=== PATIENT | male | born 1980 | race Caucasian/White ===

== ENCOUNTER 2019-02-07 16:06 | Emergency (ER) | payer SELFPAY ==
[~2019-02-07] VITALS: Ht 175.3 cm; Wt 68.0 kg
[2019-02-07] MEDS ORDERED: TAMSULOSIN 0.4 MG CAP.ER.24H. PO STA (17:08)
[2019-02-07] MEDS ORDERED: KETOROLAC 30 MG/ML VIAL. IV ONE (17:15)
[2019-02-07] MEDS ORDERED: MORPHINE SULFATE 10 MG/ML VIAL. IV ONE (17:15)
[2019-02-07] MEDS ORDERED: IV NORMAL SALINE 1000ML BAG 1,000 ML IV ONE (17:15)
[2019-02-07] MEDS ORDERED: ONDANSETRON PF 4 MG/2 ML VIAL. IV ONE (17:15)
[2019-02-07 17:43] LABS: BASO # 0.1 x10^3/uL (0.0-0.2); BASO % 1 % (0-3); EOS # 0.2 x10^3/uL (0.0-0.7); EOS % 2 % (0-3); HEMATOCRIT 44.9 % (39.0-53.0); HEMOGLOBIN 15.2 g/dL (13.0-17.5); LYMPH # 2.7 x10^3/uL (1.0-4.8); LYMPH % 29 % (24-48); MEAN CORPUSCULAR HEMOGLOBIN 31 pg (25-35); MEAN CORPUSCULAR HGB CONC 34 g/dL (31-37); MEAN CORPUSCULAR VOLUME 92 fL (79-100); MONO # 0.8 x10^3/uL (0.0-1.1); MONO % 9 % (0-9); NEUT # 5.5 x10^3/uL (1.8-7.7); NEUT % 59 % (31-73); PLATELET COUNT 218 x10^3/uL (140-400); RED BLOOD COUNT 4.91 x10^6/uL (4.30-5.70); RED CELL DISTRIBUTION WIDTH 15.1 % (11.5-14.5); WHITE BLOOD COUNT 9.2 x10^3/uL (4.0-11.0)
[2019-02-07 17:46] LABS: BILIRUBIN,URINE NEGATIVE (NEG); CLARITY,URINE CLEAR; COLOR,URINE YELLOW; NITRITE,URINE NEGATIVE (NEG); PH,URINE 5.5; PROTEIN,URINE NEGATIVE (NEG-TRACE); UROBILINOGEN,URINE 0.2 mg/dL (0.2 mg/dL)
[2019-02-07 17:52] LABS: CALCIUM 8.7 mg/dL (8.5-10.1); CREATININE 1.2 mg/dL (0.7-1.3); GFR 68.1; POTASSIUM 3.9 mmol/L (3.5-5.1)
[2019-02-07 17:55] LABS: BARBITURATES NEG (NEG); BENZODIAZEPINES NEG (NEG); CANNABINOIDS POS (NEG); COCAINE NEG (NEG); METHADONE NEG (NEG); OPIATES NEG (NEG); PHENCYCLIDINE NEG (NEG)
[2019-02-07 17:55] LABS: ALBUMIN 3.8 g/dL (3.4-5.0); ALBUMIN/GLOBULIN RATIO 1.1 (1.0-1.7); TOTAL BILIRUBIN 0.5 mg/dL (0.2-1.0); TOTAL PROTEIN 7.4 g/dL (6.4-8.2)
[2019-02-07 17:56] LABS: AMPHETAMINE/METHAMPHETAMINE POS (NEG)
[2019-02-07 17:57] LABS: BACTERIA,URINE 0 /HPF (0-FEW); RBC,URINE 0 /HPF (0-2); SQUAMOUS EPITHELIAL CELL,UR OCC /LPF; WBC,URINE OCC /HPF (0-4)
--- NOTE | 2019-02-07 17:57 | PHYS DOC ---
Past Medical History Past Medical History: Kidney Stone (KURT CHANG APRN) Past Surgical History: Other Additional Past Surgical Histo: EYE (KURT CHANG APRN) Additional Information: 0.5 PPD Alcohol Use: None Drug Use: Marijuana, Methamphetamine, Other Social History Narrative: SMOKES MARIJUANA JPTA,METH LAST USED 3 DAYS AGO (KURT CHANG APRN) Adult General Chief Complaint Chief Complaint: FLANK PAIN HPI HPI Patient is a 38 year old male with history of kidney stones who presents to the ED today complaining of 10 out of 10 left flank pain radiating to the left lower back that began 3 days ago. Patient denies any known injury. Describes the pain as sharp and intermittent. Denies any urgency, frequency, dysuria, hematuria. Denies anything relieving the pain but states bending over exacerbates the pain. Denies any pain radiating to bilateral lower extremities. Denies any loss of bowel/ bladder function. (KURT CHANG APRN) Review of Systems Review of Systems Constitutional: Denies fever or chills [] Eyes: Denies change in visual acuity, redness, or eye pain [] HENT: Denies nasal congestion or sore throat [] Respiratory: Denies cough or shortness of breath [] Cardiovascular: No additional information not addressed in HPI [] GI: Denies abdominal pain, nausea, vomiting, bloody stools or diarrhea [] : Reports left flank pain. Denies dysuria or hematuria [] Musculoskeletal: Reports low back pain. Integument: Denies rash or skin lesions [] Neurologic: Denies headache, focal weakness or sensory changes [] All other systems were reviewed and found to be within normal limits, except as documented in this note. (KURT CHANG APRN) Current Medications Current Medications Current Medications Medications (Trade) Dose Ordered Sig/Ovi Start Time Stop Time Status Last Admin Dose Admin Ketorolac Tromethamine (Toradol 30mg Vial) 30 mg 1X ONCE 02/07/19 17:15 02/07/19 17:16 DC 02/07/19 17:38 30 MG Morphine Sulfate (Morphine Sulfate) 5 mg 1X ONCE 02/07/19 17:15 02/07/19 17:16 DC 02/07/19 17:37 5 MG Ondansetron HCl (Zofran) 4 mg 1X ONCE 02/07/19 17:15 02/07/19 17:16 DC 02/07/19 17:33 4 MG Sodium Chloride 1,000 ml @ 1,000 mls/hr 1X ONCE 02/07/19 17:15 02/07/19 18:14 DC 02/07/19 17:31 1,000 MLS/HR Tamsulosin HCl (Flomax) 0.4 mg 1X STAT 02/07/19 17:08 02/07/19 17:12 DC 02/07/19 17:39 0.4 MG (ARAVIND BLANDON MD) Allergies Allergies Allergies Coded Allergies Type Severity Reaction Last Updated Verified Penicillins Allergy Intermediate HIVES 02/07/19 Yes (ARAVIND BLANDON MD) Physical Exam Physical Exam Constitutional: Well developed, well nourished, no acute distress, non-toxic appearance. [] HENT: Normocephalic, atraumatic, bilateral external ears normal, oropharynx m oist, no oral exudates, nose normal. [] Eyes: PERRLA, EOMI, conjunctiva normal, no discharge. [] Neck: Normal range of motion, no tenderness, supple, no stridor. [] Cardiovascular:Heart rate regular rhythm, no murmur [] Lungs & Thorax: Bilateral breath sounds clear to auscultation [] Abdomen: Bowel sounds normal, soft, no tenderness, no masses, no pulsatile masses. [] Skin: Warm, dry, no erythema, no rash. [] Back: Diffuse paraspinal muscle tenderness to the left lumbar spine, no midline lumbar spine tenderness, no CVA tenderness. [] Extremities: No tenderness, no cyanosis, no clubbing, ROM intact, no edema. [] Neurologic: Alert and oriented X 3, normal motor function, normal sensory function, no focal deficits noted. [] Psychologic: Affect normal, judgement normal, mood normal. [] (KURT CHANG APRN) Current Patient Data Vital Signs Vital Signs Date Time Temp Pulse Resp B/P (MAP) Pulse Ox O2 Delivery O2 Flow Rate FiO2 02/07/19 18:59 82 16 124/74 (91) 98 Room Air 02/07/19 17:03 98.2 98.2 (ARAVIND BLANDON MD) Lab Values Laboratory Tests Test 02/07/19 17:12 02/07/19 17:25 Urine Color Yellow Urine Clarity Clear Urine pH 5.5 Urine Specific [place] 1.025 Urine Protein Negative mg/dL (NEG-TRACE) Urine Glucose (UA) Negative mg/dL (NEG) Urine Ketones (Stick) Negative mg/dL (NEG) Urine Blood Negative (NEG) Urine Nitrite Negative (NEG) Urine Bilirubin Negative (NEG) Urine Urobilinogen Dipstick 0.2 mg/dL (0.2 mg/dL) Urine Leukocyte Esterase Negative (NEG) Urine RBC 0 /HPF (0-2) Urine WBC Occ /HPF (0-4) Urine Squamous Epithelial Cells Occ /LPF Urine Bacteria 0 /HPF (0-FEW) Urine Mucus Slight /LPF Urine Opiates Screen Neg (NEG) Urine Methadone Screen Neg (NEG) Urine Barbiturates Neg (NEG) Urine Phencyclidine Screen Neg (NEG) Urine Amphetamine/Methamphetamine Pos (NEG) Urine Benzodiazepines Screen Neg (NEG) Urine Cocaine Screen Neg (NEG) Urine Cannabinoids Screen Pos (NEG) Urine Ethyl Alcohol Neg (NEG) White Blood Count 9.2 x10^3/uL (4.0-11.0) Red Blood Count 4.91 x10^6/uL (4.30-5.70) Hemoglobin 15.2 g/dL (13.0-17.5) Hematocrit 44.9 % (39.0-53.0) Mean Corpuscular Volume 92 fL (79-100) Mean Corpuscular Hemoglobin 31 pg (25-35) Mean Corpuscular Hemoglobin Concent 34 g/dL (31-37) Red Cell Distribution Width 15.1 % (11.5-14.5) H Platelet Count 218 x10^3/uL (140-400) Neutrophils (%) (Auto) 59 % (31-73) Lymphocytes (%) (Auto) 29 % (24-48) Monocytes (%) (Auto) 9 % (0-9) Eosinophils (%) (Auto) 2 % (0-3) Basophils (%) (Auto) 1 % (0-3) Neutrophils # (Auto) 5.5 x10^3/uL (1.8-7.7) Lymphocytes # (Auto) 2.7 x10^3/uL (1.0-4.8) Monocytes # (Auto) 0.8 x10^3/uL (0.0-1.1) Eosinophils # (Auto) 0.2 x10^3/uL (0.0-0.7) Basophils # (Auto) 0.1 x10^3/uL (0.0-0.2) Sodium Level 142 mmol/L (136-145) Potassium Level 3.9 mmol/L (3.5-5.1) Chloride Level 104 mmol/L (98-107) Carbon Dioxide Level 29 mmol/L (21-32) Anion Gap 9 (6-14) Blood Urea Nitrogen 11 mg/dL (8-26) Creatinine 1.2 mg/dL (0.7-1.3) Estimated GFR (Cockcroft-Gault) 68.1 BUN/Creatinine Ratio 9 (6-20) Glucose Level 70 mg/dL (70-99) Calcium Level 8.7 mg/dL (8.5-10.1) Total Bilirubin 0.5 mg/dL (0.2-1.0) Aspartate Amino Transferase (AST) 17 U/L (15-37) Alanine Aminotransferase (ALT) 20 U/L (16-63) Alkaline Phosphatase 59 U/L (46-116) Total Protein 7.4 g/dL (6.4-8.2) Albumin 3.8 g/dL (3.4-5.0) Albumin/Globulin Ratio 1.1 (1.0-1.7) Lipase 198 U/L (73-393) Ethyl Alcohol Level < 10 mg/dL (0-10) Laboratory Tests 02/07/19 17:25 Laboratory Tests 02/07/19 17:25 (ARAVIND BLANDON MD) EKG EKG [] (KURT CHANG APRN) Radiology/Procedures Radiology/Procedures []PROCEDURE: CT ABDOMEN PELVIS WO CONTRAST Exam: CT abdomen and pelvis without contrast INDICATION: Right flank pain TECHNIQUE: Sequential axial images through the abdomen and pelvis obtained without IV contrast. Sagittal and coronal reformatted images were reconstructed from the axial data and reviewed. Comparisons: None FINDINGS: Heart size is normal. No pericardial effusion. Lung bases are clear. No pleural effusion. Evaluation of the solid organs is limited secondary to noncontrast technique. Liver, spleen, pancreas, gallbladder and adrenals are unremarkable. No perinephric inflammation or hydronephrosis. No renal or ureteral calculi. Bladder is decompressed not well evaluated. Prostate is not enlarged. Scattered diverticula noted probably within the descending colon without evidence of diverticulitis. The remainder of the large and small bowel are unremarkable. No obstruction. No free intraabdominal air or fluid. Abdominal aorta has a normal course and caliber. No enlarged intra-abdominal lymph nodes are identified. No suspicious osseous lesions or acute fractures. IMPRESSION: 1. No acute process identified within the abdomen or pelvis. 2. No evidence for obstructive uropathy. Normal appendix. Exposure: One or more of the following in the visualized dose reduction techniques were utilized for this examination: 1. Automated exposure control 2. Adjustment of the MA and/or KV according to patient size 3. Use of iterative of reconstructive technique Electronically signed by: Mallory Fitzgerald MD (02/07/2019 6:13 PM) [facility] DICTATED and SIGNED BY: MALLORY FITZGERALD MD DATE: 02/07/191812 (KURT CHANG APRN) Course & Med Decision Making Course & Med Decision Making Pertinent Labs and Imaging studies reviewed. (See chart for details) This is a 38-year-old male patient presenting to the ED today with left flank pain and low back pain that began 3 days ago, no known injury. History of kidney stones. CBC, CMP, lipase, no acute findings. Urine analysis is negative for infection, negative for blood. CT of the abdomen and pelvis was negative for any acute findings. Patient was discharged to home. Given prescription for cyclobenzaprine, diclofenac and Medrol Dosepak. Follow-up with primary care doctor in 1 to (KURT CHANG APRN) Course & Med Decision Making Staff Physician Addendum: I was working in the ER during the course of this patient's visit. I was available for consultation as needed, but I was not directly involved in the care of this patient. (ARAVIND BLANDON MD) Dragon Disclaimer Dragon Disclaimer This electronic medical record was generated, in whole or in part, using a voice recognition dictation system. (KURT CHANG APRN) Departure Departure Impression: Primary Impression: Low back pain Additional Impression: Acute flank pain Disposition: HOME, SELF-CARE Condition: STABLE Referrals: NO PCP (PCP) SUSY EDGAR MD follow up in one week Patient Instructions: Back Pain, Adult, [id number], Flank Pain, [id number] Additional Instructions: You were evaluated in the emergency room for flank/back pain. Your workup in the emergency room was negative for any acute findings. Please follow-up with your own doctor in the next 1-2 weeks. Scripts Methylprednisolone (MEDROL) 4 Mg Tab.ds.pk 1 PKG PO UD, #1 PKG Prov: KURT CHANG APRN 02/07/19 Cyclobenzaprine Hcl (CYCLOBENZAPRINE HCL) 10 Mg Tablet 1 TAB PO TID, #30 TAB Prov: KURT CHANG APRN 02/07/19 Diclofenac Sodium (DICLOFENAC SODIUM) 50 Mg Tablet.dr 1 TAB PO BID, #20 TAB 0 Refills Prov: KURT CHANG APRN 02/07/19 Problem Qualifiers Primary Impression: Low back pain Chronicity: acute Back pain laterality: left Sciatica presence: without sciatica Qualified Codes: M54.5 - Low back pain KURT CHANG APRN Feb 07, 2019 17:57 ARAVIND BLANDON MD Feb 08, 2019 00:54
--- NOTE | 2019-02-07 18:16 | RAD ---
Exam: CT abdomen and pelvis without contrast INDICATION: Right flank pain TECHNIQUE: Sequential axial images through the abdomen and pelvis obtained without IV contrast. Sagittal and coronal reformatted images were reconstructed from the axial data and reviewed. Comparisons: None FINDINGS: Heart size is normal. No pericardial effusion. Lung bases are clear. No pleural effusion. Evaluation of the solid organs is limited secondary to noncontrast technique. Liver, spleen, pancreas, gallbladder and adrenals are unremarkable. No perinephric inflammation or hydronephrosis. No renal or ureteral calculi. Bladder is decompressed not well evaluated. Prostate is not enlarged. Scattered diverticula noted probably within the descending colon without evidence of diverticulitis. The remainder of the large and small bowel are unremarkable. No obstruction. No free intraabdominal air or fluid. Abdominal aorta has a normal course and caliber. No enlarged intra-abdominal lymph nodes are identified. No suspicious osseous lesions or acute fractures. IMPRESSION: 1. No acute process identified within the abdomen or pelvis. 2. No evidence for obstructive uropathy. Normal appendix. Exposure: One or more of the following in the visualized dose reduction techniques were utilized for this examination: 1. Automated exposure control 2. Adjustment of the MA and/or KV according to patient size 3. Use of iterative of reconstructive technique Electronically signed by: Mallory Jo MD (02/07/2019 6:13 PM) [facility]
[2019-02-07] MEDS ORDERED: METH4TAB2 PO (18:53)
[2019-02-07] MEDS ORDERED: DICL50TA4 PO (18:53)
[2019-02-07] MEDS ORDERED: CYCL10TA2 PO (18:53)
[2019-02-07 18:59] VITALS: BP 124/74
== END 2019-02-07 19:05 | disposition home or self-care (01) ==
LOC: ER 16:06
DX: M54.5 Low back pain (principal); R10.9 Unspecified abdominal pain; M79.604 Pain in right leg; M79.605 Pain in left leg; Z87.442 Personal history of urinary calculi; Z88.0 Allergy status to penicillin; F17.200 Nicotine dependence, unspecified, uncomplicated
CPT/HCPCS: 36415; 74176; 80053; 80307; 81001; 83690; 85025; 96374; 96375; 99285; G0480; J1885; J2270; J2405; J7030